=== PATIENT | male | born 1990 | race Caucasian/White ===

== ENCOUNTER 2017-12-23 16:55 | Emergency (ER) | payer SELFPAY ==
[~2017-12-23] VITALS: Ht 180.3 cm; Wt 86.0 kg
[2017-12-23 17:01] VITALS: BP 130/71; PULSE 90; RESP 16; TEMP 97.9; O2SAT 97
[2017-12-23] MEDS ORDERED: ORPHENADRINE INJ 60 MG/2 ML AMP IM ONE (18:00)
[2017-12-23] MEDS ORDERED: KETOROLAC TROMETHAMINE 60 MG/2 ML (IM) VIAL IM ONE (18:00)
--- NOTE | 2017-12-23 18:03 | PD ---
HPI Chief Complaint: Back/ Neck Pain or Injury Time Seen by Provider: 17:40 Travel History International Travel<30 days: No Contact w/Intl Traveler<30days: No Traveled to known affect area: No History of Present Illness HPI 27-year-old male presents to the ED for evaluation of 2 day history of right- sided low back pain. Onset after he helped a friend move some furniture. Pain is sharp, rated 8/10, worsened by certain movements. Patient denies any radiation of the pain, numbness, tingling, weakness, limitations or range of motion of the lower extremity, dysuria, hematuria, penile discharge, saddle anesthesia, incontinence. He denies any previous injury to the back. He's been treating at home with ice packs and warm compresses and ibuprofen with no improvement of symptoms. Last dose of ibuprofen this morning. PFSH Past Medical History Medical other: Yes (ankylosingsponylitis) Tetanus Vaccination: Unknown Influenza Vaccination: No Social History Alcohol Use: No Tobacco Use: Yes (1ppd) Substance Use: No Allergies-Medications (Allergen,Severity, Reaction): Coded Allergies: No Known Allergies (Unverified , 12/23/17) Review of Systems Except as stated in HPI: all other systems reviewed are Neg Physical Exam Narrative GENERAL: Well-nourished, well-developed white male in no acute distress. SKIN: Focused skin assessment warm/dry. HEAD: Normocephalic. EYES: No scleral icterus. No injection or drainage. NECK: Supple, trachea midline. No JVD or lymphadenopathy. CARDIOVASCULAR: Regular rate and rhythm without murmurs, gallops, or rubs. RESPIRATORY: Breath sounds clear and equal bilaterally. No accessory muscle use. GASTROINTESTINAL: Abdomen soft, non-tender, nondistended. MUSCULOSKELETAL: No cyanosis, or edema. 5/5 strength of the bilateral lower extremities. Straight leg raise negative bilaterally. BACK: Nontender without obvious deformity. No CVA tenderness. No midline tenderness to palpation. Palpable spasm of the right-sided lumbar paraspinal musculature. Data Data Last Documented VS Vital Signs Date Time Temp Pulse Resp B/P (MAP) Pulse Ox O2 Delivery O2 Flow Rate FiO2 12/23/17 17:01 97.9 90 16 130/71 (90) 97 Orders Orders Ketorolac Inj (Toradol Inj) (12/23/17 18:00) Orphenadrine Inj (Norflex Inj) (12/23/17 18:00) [facility] Medical Decision Making Medical Screen Exam Complete: Yes Emergency Medical Condition: Yes Differential Diagnosis Musculoskeletal pain versus radiculopathy versus muscle spasm versus other Narrative Course 27-year-old male presents to the ED for evaluation of 2 day history of right- sided low back pain. Onset after he helped a friend move some furniture. Pain is sharp, rated 8/10, worsened by certain movements. Patient denies any radiation of the pain, numbness, tingling, weakness, limitations or range of motion of the lower extremity, dysuria, hematuria, penile discharge, saddle anesthesia, incontinence,any previous injury to the back. On examination palpable spasm of the paraspinal musculature in the right lumbar area. Exam otherwise reassuring. Patient was administered IM Toradol and Norflex. He is provided a short course of anti-inflammatories and muscle relaxants, instructed to return to, normal gentle activity as tolerated, follow up with the PCP if symptoms persist. He is stable and discharged home. Diagnosis Primary Impression: Musculoskeletal back pain Additional Impression: Muscle spasm Referrals: Primary Care Physician Additional Instructions: Rest, hydrate. Return to normal, gentle activity as tolerated. No heavy lifting for the next few days. Warm compresses or cold compresses applied to area of pain in the 15 minutes per session a few times a day may help to improve your symptoms. Gentle massage may also help to improve your symptoms. Take 800 mg ibuprofen every 8 hours as prescribed to reduce inflammation and pain. Flexeril every 8 hours as prescribed as needed for muscle spasm. Do not drive while taking Flexeril as this may cause drowsiness. Follow-up with her primary care provider in one week. Return to the ED for worsening symptoms or any urgent or emergent medical condition. Med/Other Pt SpecificInfo: Prescription(s) given Disposition: DISCHARGE HOME Condition: Stable Stephanie Arnold Dec 23, 2017 18:03
[2017-12-23] MEDS ORDERED: IBUP1TAB7 PO (18:04)
[2017-12-23] MEDS ORDERED: CYCL10TA PO (18:04)
[2017-12-24] MEDS ORDERED: MEDR4PAK PO (12:40)
== END 2017-12-23 18:32 | disposition home or self-care (01) ==
LOC: PHEFT 16:55
DX: M54.9 Dorsalgia, unspecified (principal); M62.830 Muscle spasm of back; Z72.0 Tobacco use
CPT/HCPCS: 96372; 99283; J1885; J2360

== ENCOUNTER 2017-12-24 11:13 | Emergency (ER) | payer SELFPAY ==
[~2017-12-24] VITALS: Ht 180.3 cm; Wt 85.5 kg
[~2017-12-24 11:13] MED LIST: CYCL10TA PO; IBUP1TAB7 PO
[2017-12-24 11:27] VITALS: BP 127/71; PULSE 83; RESP 16; TEMP 99.1; O2SAT 98
[2017-12-24] MEDS ORDERED: MEDR4PAK PO (12:40)
--- NOTE | 2017-12-24 12:40 | PD ---
HPI Chief Complaint: Back/ Neck Pain or Injury Time Seen by Provider: 12:32 Travel History International Travel<30 days: No Contact w/Intl Traveler<30days: No Traveled to known affect area: No History of Present Illness HPI 27-year-old male presents to the emergency department for evaluation of persistent low back pain. Patient states he injured his back moving furniture. He was seen and evaluated emergency department yesterday. He is provided NSAIDs and muscle relaxant. He states this is not helping his pain. He denies any new injury. No saddle paresthesia, loss of bowel or bladder, no lower extremity weakness. Patient denies any IV drug use. He has had no fever or chills. He has no urinary complaints. Pain is constant, aching, intermittent sharp. He has no other symptoms to report. PFSH Past Medical History Medical History: Denies Significant Hx Social History Alcohol Use: No Tobacco Use: Yes (1ppd) Substance Use: No Allergies-Medications (Allergen,Severity, Reaction): Coded Allergies: No Known Allergies (Unverified , 12/24/17) Reported Meds & Prescriptions Reported Meds & Active Scripts Active Medrol Dosepak (Methylprednisolone) 4 Mg Dspk 4 Mg PO DIRECTED Per Pharmacist direction Ibuprofen 800 Mg Tab 800 Mg PO Q8H Flexeril (Cyclobenzaprine HCl) 10 Mg Tab 10 Mg PO TID Review of Systems Except as stated in HPI: all other systems reviewed are Neg Physical Exam Narrative GENERAL: Well-nourished, well-developed male patient, ambulatory with a nonantalgic gait, no acute distress. SKIN: Focused skin assessment warm/dry. HEAD: Normocephalic. EYES: No scleral icterus. No injection or drainage. NECK: Supple, trachea midline. No JVD or lymphadenopathy. CARDIOVASCULAR: Regular rate and rhythm without murmurs, gallops, or rubs. RESPIRATORY: Breath sounds equal bilaterally. No accessory muscle use. GASTROINTESTINAL: Abdomen soft, non-tender, nondistended. MUSCULOSKELETAL: No cyanosis, or edema. 5+ strength equal bilateral extremity. No spinal tenderness to palpation. BACK: Nontender without obvious deformity. No CVA tenderness. Data Data Last Documented VS Vital Signs Date Time Temp Pulse Resp B/P (MAP) Pulse Ox O2 Delivery O2 Flow Rate FiO2 12/24/17 11:27 99.1 83 16 127/71 (89) 98 Orders Orders Dexamethasone Inj (Decadron Inj) (12/24/17 12:45) Ed Discharge Order (12/24/17 12:39) [facility] Medical Decision Making Medical Screen Exam Complete: Yes Emergency Medical Condition: Yes Medical Record Reviewed: Yes Differential Diagnosis Low back strain versus discogenic pain versus radiculopathy versus sciatica versus muscle spasm Narrative Course 27-year-old male presents to emergency department for evaluation. Patient appears without distress. Vital signs are stable. He has no midline spinal tenderness. I'll start him on a short course oral steroids. Encouraged follow- up with primary care provider. He agrees to return immediately with any acute worsening of symptoms. Diagnosis Primary Impression: Back pain Qualified Codes: M54.5 - Low back pain Referrals: Primary Care Physician Patient Instructions: Back Pain (ED), General Instructions Departure Forms: Tests/Procedures, Work Release Enter return to work date: Dec 27, 2017 Additional Instructions: Ice and/or warm moist heat may help alleviate symptoms Avoid activity that exacerbates pain Avoid prolonged bedrest Follow-up with the primary care provider Return immediately with any acute worsening of symptoms Med/Other Pt SpecificInfo: Prescription(s) given Scripts Methylprednisolone Dosepak (Medrol Dosepak) 4 Mg Dspk 4 MG PO DIRECTED, #1 DSPK 0 Refills Per Pharmacist direction Prov: Callie Harris 12/24/17 Disposition: 01 DISCHARGE HOME Condition: Stable Callie Harris Dec 24, 2017 12:40
[2017-12-24] MEDS ORDERED: DEXAMETHASONE SOD PHOS 20 MG/5 ML VIAL IM ONE (12:45)
== END 2017-12-24 12:53 | disposition home or self-care (01) ==
LOC: PHED 11:13 → PHEFT 12:53
DX: M54.5 Low back pain (principal); F17.200 Nicotine dependence, unspecified, uncomplicated; X50.0XXA Overexertion from strenuous movement or load, initial encounter; Y93.89 Activity, other specified
CPT/HCPCS: 96372; 99283; J1100

== ENCOUNTER 2017-12-26 06:24 | Emergency (ER) | payer SELFPAY ==
[~2017-12-26] VITALS: Ht 175.3 cm; Wt 82.0 kg
[~2017-12-26 06:24] MED LIST changes: +MEDR4PAK PO
[2017-12-26 06:27] VITALS: BP 141/84; PULSE 87; RESP 16; TEMP 98.5; O2SAT 100
[2017-12-26] MEDS ORDERED: ORPHENADRINE INJ 60 MG/2 ML AMP IM ONE (07:15)
[2017-12-26] MEDS ORDERED: KETOROLAC TROMETHAMINE 60 MG/2 ML (IM) VIAL IM ONE (07:15)
--- NOTE | 2017-12-26 07:17 | PD ---
HPI Chief Complaint: Back/ Neck Pain or Injury Time Seen by Provider: 06:55 Travel History International Travel<30 days: No Contact w/Intl Traveler<30days: No Traveled to known affect area: No History of Present Illness HPI 27 year old male presents to the emergency department for evaluation of left lower back pain that started yesterday while playing around with his niece. This is the patient's 3rd visit for back pain this month. He states he previously had right lower back pain, but that has resolved. Now, after playing with his niece, he has left lower back pain. Patient currently rates the pain 9/10, without radiation, to the left lower back, aching, worse with movement and bending over, alleviated with laying still. Patient adamantly denies any history of IVDU. He denies any fevers, chills. No abdominal pain. No loss of bowel or bladder function. No saddle anesthesias. Patient reports history of ankylosing spondylosis. He reports h/o chronic back pain. He was recently prescribed Ibuprofen and Flexeril as well as a Medrol dose pack. He states he is taking the Ibuprofen and Flexeril, but hasn't taken the Medrol dose pack. Patient is ambulatory without difficulty. Moderate Severity. PFSH Past Medical History Immunizations Current: Yes Tetanus Vaccination: Unknown Influenza Vaccination: No Social History Alcohol Use: No Tobacco Use: Yes (1ppd) Substance Use: No Allergies-Medications (Allergen,Severity, Reaction): Coded Allergies: No Known Allergies (Unverified , 12/26/17) Reported Meds & Prescriptions Reported Meds & Active Scripts Active Medrol Dosepak (Methylprednisolone) 4 Mg Dspk 4 Mg PO DIRECTED Per Pharmacist direction Ibuprofen 800 Mg Tab 800 Mg PO Q8H Flexeril (Cyclobenzaprine HCl) 10 Mg Tab 10 Mg PO TID Review of Systems Except as stated in HPI: all other systems reviewed are Neg Physical Exam Narrative GENERAL: Well developed, well nourished male patient, ambulatory and in no acute distress. Afebrile. SKIN: Warm and dry. HEAD: Normocephalic. Atraumatic. EYES: No scleral icterus. No injection or drainage. NECK: Supple, trachea midline. No JVD or lymphadenopathy. CARDIOVASCULAR: Regular rate and rhythm without murmurs, gallops, or rubs. Bilateral pedal pulses 2+. RESPIRATORY: Breath sounds equal bilaterally. No accessory muscle use. Lung sounds are clear to auscultation. GASTROINTESTINAL: Abdomen soft, non-tender, nondistended. MUSCULOSKELETAL: No cyanosis, or edema. Bilateral upper and lower extremity strength 5/5. All extremities are neurovascularly intact. BACK: Nontender without obvious deformity. No CVA tenderness. No midline spinal tenderness. No bony point tenderness, step off, or crepitus. He has tenderness over the left lower lumbar paraspinal musculature. Straight leg is negative bilaterally. No clonus. Data Data Last Documented VS Vital Signs Date Time Temp Pulse Resp B/P (MAP) Pulse Ox O2 Delivery O2 Flow Rate FiO2 12/26/17 06:27 98.5 87 16 141/84 (103) 100 Orders Orders Ketorolac Inj (Toradol Inj) (12/26/17 07:15) Orphenadrine Inj (Norflex Inj) (12/26/17 07:15) [facility] Medical Decision Making Medical Screen Exam Complete: Yes Emergency Medical Condition: Yes Medical Record Reviewed: Yes Differential Diagnosis muscle strain vs. muscle spasm vs. herniated disc vs. drug seeking behavior Narrative Course 27 year old male presents to the emergency department complaining of left low back pain. He denies any traumatic injury. No red flag symptoms. He adamantly denies h/o of IVDU. Patient appears well on exam. Toradol 60 mg IM and Norflex 60 mg IM are ordered. However, the patient left before he could be given medications or discharged. Diagnosis Primary Impression: Low back pain Qualified Codes: M54.5 - Low back pain Referrals: [facility] call for appointment Patient Instructions: Acute Low Back Pain (ED), General Instructions Additional Instructions: Heating pad on low for 20 mins 4-5 times daily. Continue Ibuprofen/Flexeril as needed as directed. Follow up with the [facility]. Return to the emergency department for any acute, worsening of symptoms. Med/Other Pt SpecificInfo: No Change to Meds Disposition: 01 DISCHARGE HOME Condition: Stable Helen Brandon Dec 26, 2017 07:17
== END 2017-12-26 07:49 | disposition home or self-care (01) ==
LOC: NEPD 06:24
DX: M54.5 Low back pain (principal); F17.210 Nicotine dependence, cigarettes, uncomplicated
CPT/HCPCS: 99282